=== PATIENT | female | born 1995 | race African-American/Black ===

== ENCOUNTER 2017-06-13 16:34 | Emergency (ER) | payer OTHER ==
[~2017-06-13] VITALS: Ht 157.4 cm; Wt 50.3 kg
[2017-06-13 17:11] LABS: ALBUMIN 3.7 gm/dl (3.1-4.5); ALKALINE PHOSPHATASE 102 U/L (45-117); BUN 11 mg/dl (7-24); CHLORIDE 105 mmol/L (98-107); CREATININE 0.57 mg/dL (0.55-1.02); POTASSIUM 3.9 mmol/L (3.5-5.1); SGOT/AST 13 IU/L (3-35); SGPT/ALT 10 U/L (12-78); SODIUM 139 mmol/L (136-145); TOTAL PROTEIN 7.3 gm/dL (6.4-8.2)
[2017-06-13 17:13] LABS: ACETAMINOPHEN (TYLENOL) < 2.0 ug/ml (10-30)
[2017-06-13] MEDS ORDERED: PENICILLIN-VK500 MG PO (17:37)
== END 2017-06-13 17:53 | disposition home or self-care (01) ==
LOC: ED 16:34
PROVIDERS: Emergency Medicine
DX: T39.311A Poisoning by propionic acid derivatives, accidental (unintentional), initial encounter (principal); K02.9 Dental caries, unspecified; K04.7 Periapical abscess without sinus; Y92.9 Unspecified place or not applicable

== ENCOUNTER 2017-07-28 20:28 | Emergency (ER) | payer OTHER ==
[~2017-07-28] VITALS: Ht 167.6 cm; Wt 56.7 kg
[~2017-07-28 20:28] MED LIST: PENICILLIN-VK500 MG PO
[2017-07-28] MEDS ORDERED: PRENATA CHEWAB1 EACH PO (20:39)
[2017-07-28] MEDS ORDERED: REGLAN5 MG PO (20:39)
== END 2017-07-28 20:45 | disposition home or self-care (01) ==
LOC: ED 20:28
DX: Z32.01 Encounter for pregnancy test, result positive (principal); Z79.899 Other long term (current) drug therapy

== ENCOUNTER 2017-08-06 09:01 | Emergency (ER) | payer OTHER ==
[~2017-08-06] VITALS: Wt 50.3 kg
[~2017-08-06 09:01] MED LIST changes: +PRENATA CHEWAB1 EACH PO; +REGLAN5 MG PO
== END 2017-08-06 09:33 | disposition home or self-care (01) ==
LOC: ED 09:01
DX: O9A.211 Injury, poisoning and certain other consequences of external causes complicating pregnancy, first trimester (principal); S09.90XA Unspecified injury of head, initial encounter; Z3A.01 Less than 8 weeks gestation of pregnancy; Y04.0XXA Assault by unarmed brawl or fight, initial encounter; Y93.89 Activity, other specified; Y92.89 Other specified places as the place of occurrence of the external cause; Y99.9 Unspecified external cause status

== ENCOUNTER 2017-08-29 19:52 | Emergency (ER) | payer OTHER ==
[~2017-08-29] VITALS: Ht 162.5 cm; Wt 56.7 kg
--- NOTE | ~2017-08-29 | EKG ---
[place], [place] ELECTROCARDIOGRAM REPORT NAME: SARA CHRISTIAN UNIT #: [id number] ROOM: DOCTOR: EPIPHANY DRAFT REPORT BIRTHDATE: [birth year] [facility] Test Date: 2017-08-29 Test Time: 20:30:01 Pat Name: SARA CHRISTIAN Department: Room: Gender: F Transportation Coordinator: SS RESP : 1995 Requested By: GENTRY RANDOLPH Order Number: [id number] Reading MD: Adis Costa MD Measurements Intervals [place] Rate: 76 P: 54 ID: 160 QRS: 35 QRSD: 77 T: 45 QT: 352 QTc: 396 Interpretive Statements Sinus arrhythmia Low voltage TW in V3-6 Electronically Signed On 09-03-2017 14:26:34 PDT by Adis Costa MD CM:EKGRPT:ELECTROCARDIOGRAM REPORT 29 1426 GENTRY VICENTE DRAFT REPORT GENTRY RANDOLPH DO
[2017-08-29 20:27] LABS: BASO # 0.1 10*3/uL (0.0-0.1); BASO % 0.6 % (0.0-1.0); EOS # 0.4 10*3/uL (0.0-0.4); EOS % 4.8 % (1.0-4.0); HEMATOCRIT 33.4 % (37.0-47.0); HEMOGLOBIN 10.9 g/dl (12.0-16.0); LYMPH # 1.9 10*3/uL (1.3-4.4); LYMPH % 23.2 % (27.0-41.0); MEAN CELL VOLUME 92.5 fl (81.0-99.0); MEAN CORPUSCULAR HGB 30.2 pg (27.0-31.0); MEAN CORPUSCULAR HGB CONC 32.6 g/dl (33.0-37.0); MEAN PLATELET VOLUME 10.6 fl (9.6-12.3); MONO # 0.5 10*3/uL (0.1-1.0); MONO % 5.6 % (3.0-9.0); NEUT # 5.2 10*3/uL (2.3-7.9); NEUT % 65.7 % (47.0-73.0); PLATELET COUNT AUTOMATED 253 10*3/uL (130-400); RED BLOOD COUNT 3.61 10*6/uL (4.10-5.10); RED CELL DISTRI WIDTH 13.3 % (0-14.5)
[2017-08-29 20:34] LABS: ALBUMIN 3.7 gm/dl (3.1-4.5); ALKALINE PHOSPHATASE 81 U/L (45-117); BUN 9 mg/dl (7-24); CHLORIDE 106 mmol/L (98-107); CREATININE 0.81 mg/dL (0.55-1.02); POTASSIUM 3.4 mmol/L (3.5-5.1); SGOT/AST 9 IU/L (3-35); SGPT/ALT 12 U/L (12-78); SODIUM 142 mmol/L (136-145); TOTAL PROTEIN 7.3 gm/dL (6.4-8.2)
[2017-08-29 21:58] LABS: BILIRUBIN NEGATIVE (NEGATIVE); BLOOD 2+ (NEGATIVE); CLARITY CLEAR (CLEAR); COLOR YELLOW (YELLOW); GLUCOSE NEGATIVE (NEGATIVE); KETONE NEGATIVE (NEGATIVE); LEUKO ESTERASE TRACE (NEGATIVE); NITRITE NEGATIVE (NEGATIVE); PH 7.5 (5.0-9.0); UROBILINOGEN 0.2 E.U./dl (0.2-1.0)
[2017-08-29 22:07] LABS: BACTERIA TRACE; URINE AMPHETAMINES < 1000 (1000ng/ml); URINE BARBITURATES < 200 (200ng/ml); URINE BENZODIAZEPINES < 200 (200ng/ml); URINE CANNABINOIDS (THC) > 50 (50ng/ml); URINE COCAINE < 300 (300ng/ml); URINE METHADONE < 300 (300ng/ml); URINE OPIATES > 300 (300ng/ml)
[2017-08-29 22:11] LABS: URINE PHENCYCLIDINE < 25 (25ng/ml)
[2017-08-29] MEDS ORDERED: DIFLUCAN150 MG PO (22:26)
[2017-08-29] MEDS ORDERED: KEFLEX500 M1 PO (22:26)
== END 2017-08-29 22:35 | disposition home or self-care (01) ==
LOC: ED 19:52
PROVIDERS: Emergency Medicine
DX: R42 Dizziness and giddiness (principal); S01.81XA Laceration without foreign body of other part of head, initial encounter; Z79.899 Other long term (current) drug therapy; W18.39XA Other fall on same level, initial encounter; Y93.01 Activity, walking, marching and hiking; Y99.8 Other external cause status

== ENCOUNTER 2018-01-15 18:42 | Emergency (ER) | payer OTHER ==
[~2018-01-15] VITALS: Wt 46.3 kg
[~2018-01-15 18:42] MED LIST changes: +DIFLUCAN150 MG PO; +KEFLEX500 M1 PO
[2018-01-15 19:05] LABS: BILIRUBIN NEGATIVE (NEGATIVE); BLOOD NEGATIVE (NEGATIVE); CLARITY SL CLOUDY (CLEAR); COLOR YELLOW (YELLOW); GLUCOSE NEGATIVE (NEGATIVE); KETONE TRACE (NEGATIVE); LEUKO ESTERASE NEGATIVE (NEGATIVE); NITRITE NEGATIVE (NEGATIVE); SPECIFIC GRAVITY >= 1.030 (1.005-1.030); UROBILINOGEN 0.2 E.U./dl (0.2-1.0)
[2018-01-15 19:13] LABS: MUCOUS 2+
[2018-01-15] MEDS ORDERED: ZOFRAN4 MG PO (20:03)
== END 2018-01-15 20:45 | disposition home or self-care (01) ==
LOC: ED 18:42
PROVIDERS: Physician Assistant
DX: B34.9 Viral infection, unspecified (principal)

== ENCOUNTER 2018-08-23 10:10 | Emergency (ER) | payer OTHER ==
[~2018-08-23] VITALS: Ht 157.4 cm; Wt 46.7 kg
[~2018-08-23 10:10] MED LIST changes: +ZOFRAN4 MG PO
[2018-08-23 10:40] LABS: BASO # 0.1 10*3/uL (0.0-0.1); BASO % 0.6 % (0.0-1.0); EOS # 0.1 10*3/uL (0.0-0.4); EOS % 0.9 % (1.0-4.0); HEMATOCRIT 37.7 % (37.0-47.0); HEMOGLOBIN 12.9 g/dl (12.0-16.0); LYMPH # 1.8 10*3/uL (1.3-4.4); LYMPH % 20.3 % (27.0-41.0); MEAN CELL VOLUME 91.7 fl (81.0-99.0); MEAN CORPUSCULAR HGB 31.4 pg (27.0-31.0); MEAN CORPUSCULAR HGB CONC 34.2 g/dl (33.0-37.0); MEAN PLATELET VOLUME 10.5 fl (9.6-12.3); MONO # 0.5 10*3/uL (0.1-1.0); MONO % 5.6 % (3.0-9.0); NEUT # 6.5 10*3/uL (2.3-7.9); NEUT % 72.3 % (47.0-73.0); PLATELET COUNT AUTOMATED 311 10*3/uL (130-400); RED BLOOD COUNT 4.11 10*6/uL (4.10-5.10); RED CELL DISTRI WIDTH 13.2 % (0-14.5)
[2018-08-23 10:54] LABS: ALBUMIN 3.7 gm/dl (3.1-4.5); ALKALINE PHOSPHATASE 52 U/L (45-117); BUN 8 mg/dl (7-24); CHLORIDE 104 mmol/L (98-107); CREATININE 0.65 mg/dL (0.55-1.02); LIPASE 59 U/L (73-393); POTASSIUM 3.5 mmol/L (3.5-5.1); SGOT/AST 16 IU/L (3-35); SGPT/ALT 17 U/L (12-78); SODIUM 138 mmol/L (136-145)
[2018-08-23 11:30] LABS: BILIRUBIN 1+ (NEGATIVE); BLOOD NEGATIVE (NEGATIVE); CLARITY CLOUDY (CLEAR); COLOR YELLOW (YELLOW); GLUCOSE NEGATIVE (NEGATIVE); KETONE 3+ (NEGATIVE); LEUKO ESTERASE NEGATIVE (NEGATIVE); NITRITE NEGATIVE (NEGATIVE); PH 7.5 (5.0-9.0); SPECIFIC GRAVITY 1.015 (1.005-1.030)
[2018-08-23 11:40] LABS: BACTERIA 2+; MUCOUS 2+
[2018-08-23 11:41] LABS: EPITHELIAL CELLS 15-20
[2018-08-23] MEDS ORDERED: MACROBID100 M1 PO (11:59)
== END 2018-08-23 12:48 | disposition home or self-care (01) ==
LOC: ED 10:10
PROVIDERS: Nurse Practitioner Family
DX: O23.42 Unspecified infection of urinary tract in pregnancy, second trimester (principal); B96.89 Other specified bacterial agents as the cause of diseases classified elsewhere; O26.892 Other specified pregnancy related conditions, second trimester; E86.0 Dehydration; Z3A.16 16 weeks gestation of pregnancy

== ENCOUNTER 2019-01-20 17:41 | Emergency (ER) | payer OTHER ==
[~2019-01-20] VITALS: Ht 157.4 cm; Wt 47.2 kg
[~2019-01-20 17:41] MED LIST changes: +MACROBID100 M1 PO
[2019-01-20] MEDS ORDERED: KETOROLAC10 MG PO (18:54)
== END 2019-01-20 19:00 | disposition home or self-care (01) ==
LOC: ED 17:41
DX: O9A.23 Injury, poisoning and certain other consequences of external causes complicating the puerperium (principal); S29.012A Strain of muscle and tendon of back wall of thorax, initial encounter; O90.89 Other complications of the puerperium, not elsewhere classified; R51 Headache; Z79.2 Long term (current) use of antibiotics; X58.XXXA Exposure to other specified factors, initial encounter; Y93.89 Activity, other specified; Y92.89 Other specified places as the place of occurrence of the external cause; Y99.8 Other external cause status

== ENCOUNTER 2019-01-27 17:34 | Emergency (ER) | payer OTHER ==
[~2019-01-27] VITALS: Ht 157.4 cm; Wt 46.7 kg
[~2019-01-27 17:34] MED LIST changes: +KETOROLAC10 MG PO
[2019-01-27 18:46] LABS: BILIRUBIN NEGATIVE (NEGATIVE); BLOOD NEGATIVE (NEGATIVE); CLARITY CLEAR (CLEAR); COLOR YELLOW (YELLOW); GLUCOSE NEGATIVE (NEGATIVE); KETONE NEGATIVE (NEGATIVE); LEUKO ESTERASE NEGATIVE (NEGATIVE); NITRITE NEGATIVE (NEGATIVE); SPECIFIC GRAVITY 1.015 (1.005-1.030); UROBILINOGEN 0.2 E.U./dl (0.2-1.0)
[2019-01-27 18:51] LABS: MUCOUS 4+; RBC 0-2 rbc/hpf (0-2)
[2019-01-27 18:52] LABS: BACTERIA TRACE
== END 2019-01-27 19:48 | disposition home or self-care (01) ==
LOC: ED 17:34
PROVIDERS: Nurse Practitioner Family
DX: O9A.23 Injury, poisoning and certain other consequences of external causes complicating the puerperium (principal); S16.1XXA Strain of muscle, fascia and tendon at neck level, initial encounter; S09.90XA Unspecified injury of head, initial encounter; Z79.2 Long term (current) use of antibiotics; V47.5XXA Car driver injured in collision with fixed or stationary object in traffic accident, initial encounter; Y93.I9 Activity, other involving external motion; Y92.488 Other paved roadways as the place of occurrence of the external cause; Y99.8 Other external cause status